=== PATIENT | male | born 1955 ===

== ENCOUNTER 2023-05-27 14:37 | Outpatient (AMB) | payer OTHER, SELFPAY ==
--- NOTE | 2023-05-27 14:39 | MHC.OFFWIV ---
Intake Vital Signs 05/27/23 14:41 BP 168/72 H Blood Pressure Location Rt brachial Position Sitting Pulse 93 Pulse Source Pulse Oximeter Temp 98.3 F Temp Source Oral Pulse Oximetry (%) 100 Oxygen Delivery Method Room Air Intake Visit Reasons: [employer]OR, feverish,no urination in 24 hrs Intake Note: Pt is here c/o having a fever for the last four days. Pt also states he has not urinated in 24 hours. Patient Tobacco Use Status: Never used Tobacco Allergies No Known Allergies Allergy (Verified 05/29/23 09:24) Medication List - Last Reconciled 05/29/23 by Kvng Faria MD No Known Home Meds Do you need a note to return to daycare/school/sports/work: No HPI [employer], feverish,no urination in 24 hrs HPI Details 68-year-old male presents to the office for a sick visit. He has not seen a primary care physician in years. Patient is reporting symptoms of diarrhea for the past week. He has not been to work for the past week. he is feeling tired and in the last 12 hours is been unable to pass urine. The diarrhea symptoms have resolved. Reports low-grade fever at times. Patient is looking for a referral to a specialist. [facility] Social History Alcohol intake: current Alcohol intake frequency: 0-2 drinks per day Alcohol type: beer Patient Tobacco Use Status: Never used Tobacco Smoked in Last 30 Days: No Use of substances other than those prescribed or required for medical reasons: No Advance Directives: No Advance Directives Information Provided: No Physical Exam Vital Signs: Last Vital Signs Temp 98.3 F 05/27/23 14:41 Pulse 93 05/27/23 14:41 BP 168/72 H 05/27/23 14:41 Pulse Ox 100 05/27/23 14:41 Oxygen Delivery Method Room Air 05/27/23 14:41 Const General: cooperative and healthy appearing Nutritional Appearance: well nourished Orientation/consciousness: patient oriented x3 Limitations: no limitations HEENT Other: Dry oral cavity. Pale sclera. Head: Yes normal to inspection Eyes General: appearance normal, both eyes and all related structures Neck Neck: Yes normal visual inspection Chest Chest palpation & inspection: normal palpation of entire chest wall Resp Effort & Inspection: normal respiratory effort Neuro General: patient oriented x3 Assessment & Plan Assessment & Plan (1) Dehydration: Code(s): E86.0 - Dehydration Plan: Physical exam is significant to mild dehydration. Patient was advised to drink a lot of fluids. Blood work has been drawn to check kidney functions as patient is reporting low output of urine. Will call with results of the blood work. Orders: Orders Basic Metabolic Panel 05/27/23 E86.0 - Dehydration Liver Panel 05/27/23 E86.0 - Dehydration Complete Blood Count no Diff 05/27/23 E86.0 - Dehydration Erythrocyte Sedimentation Rate 05/27/23 E86.0 - Dehydration UA and rflx microscopic 05/27/23 E86.0 - Dehydration Coding Level of Care Code New Pt Level 3 (85829) Diagnoses Dehydration E86.0
[2023-05-27 14:41] VITALS: BP 168/72; PULSE 93; TEMP 36.8; O2SAT 100
== END 2023-05-27 17:00 | disposition home or self-care (01) ==
PROVIDERS: Visit Provider Internal Medicine
DX: E86.0 Dehydration (principal)
CPT/HCPCS: 99203

== ENCOUNTER 2023-05-27 14:55 | Outpatient (REF) | payer OTHER, SELFPAY ==
[2023-05-27 16:29] LABS: Hematocrit 34.2 % (42.0-52.0); Hemoglobin 11.3 g/dl (14.0-18.0); Mean Corpuscular Hemoglobin 29.7 pg (27.0-33.0); Mean Platelet Volume 10.2 fL (9.4-12.4); Platelet Count 609 X10*3/uL (160-400); Red Cell Distribution Width 15.9 % (11.0-16.0)
[2023-05-27 17:32] LABS: Alanine Aminotransferase 37 U/L (0-40); Albumin Level 3.7 g/dL (3.5-5.0); Alkaline Phosphatase 130 U/L (39-117); Anion Gap 24 (12-20); Aspartate Amino Transferase 34 U/L (5-37); Bilirubin Direct 0.4 mg/dL (0.0-0.5); Bilirubin Total 0.8 mg/dL (0.0-1.0); Blood Urea Nitrogen 90 mg/dL (9-16); Calcium 8.5 mg/dL (8.4-10.2); Carbon Dioxide 16 mmol/L (22-29); Chloride 98 mmol/L (96-108); Estimated Glomerular Filt Rate 6; Glucose Random 104 mg/dL (60-115); Potassium 4.6 mmol/L (3.3-5.1); Sodium 133 mmol/L (135-145); Total Protein 7.3 g/dL (6.5-8.0)
[2023-05-27 17:39] LABS: Erythrocyte Sedimentation Rate 38 MM/HR (0-15)
[2023-05-27 18:04] LABS: White Blood Count 123.5 X10*3/uL (4.8-10.8)
[2023-05-27 19:19] LABS: Band Neutrophils Percent 10 % (3-5); Basophils Abs Manual 6.2 X10*3/uL (0.0-0.2); Basophils Percent Manual 5 % (0-2); Blastocytes Absolute 1.2 X10*3/uL; Lymphocytes Absolute Manual 3.7 X10*3/uL (1.2-4.9); Lymphocytes Percent Manual 3 % (20-40); Metamyelocytes Absolute 13.6 X10*3/uL; Metamyelocytes Percent 11 %; Myelocytes Absolute 8.6 X10*/uL; Myelocytes Percent 7 %; Neutrophils Absolute Manual 90.2 X10*3/uL (2.0-8.3); Neutrophils Percent Manual 63 % (45-73)
[2023-05-27 19:41] LABS: Promyelocytes Absolute 1.2 X10*3/uL; Promyelocytes Percent 1 %
[2023-05-27 19:46] LABS: Ovalocytes 1+ (5-14) /OIF; RBC Morphology NOTED
[2023-05-27 19:47] LABS: Large Platelet PRESENT
[2023-05-27 19:48] LABS: Platelet Estimate INCREASED (NORMAL)
[2023-05-27 19:49] LABS: Platelet Morphology Comment NOTE
== END 2023-05-27 14:56 | disposition home or self-care (01) ==
LOC: HO.HMGCLDS 14:55
PROVIDERS: Visit Provider Internal Medicine
DX: E86.0 Dehydration (principal)
CPT/HCPCS: 36415; 80048; 80076; 85007; 85027; 85652

== ENCOUNTER 2023-05-27 18:19 | Emergency (ER) | payer OTHER, SELFPAY ==
--- NOTE | ~2023-05-27 | CT_ITS ---
EXAMINATION: CT CHEST, ABDOMEN AND PELVIS WITHOUT CONTRAST. CLINICAL INFORMATION: Chest discomfort, abdominal pain. COMPARISON: No pertinent prior studies are available for comparison. TECHNIQUE: Multidetector volumetric imaging was performed from the thoracic inlet through the pubic symphysis without IV contrast. Sagittal and coronal reformatted images were obtained on the technologist's workstation. This CT examination was performed using dose optimization techniques as appropriate, variously including the following: *Automated exposure control *Adjustment of mA and/or kV according to patient size (this includes techniques or standardized protocols for targeted exams where dose is matched to indication/reason for exam; i.e. extremities or head) *Use of iterative reconstruction technique DLP: 787 mGy-cm FINDINGS: The lack of intravenous contrast limits evaluation of the vasculature as well as solid visceral organs. CHEST: Lung: Bilateral platelike opacities more noticeable in the right lower lobe favoring to represent subsegmental atelectasis and/or scarring. No consolidation or significant groundglass disease. Central airways are patent. A few micronodules of uncertain significance. A few small calcified granulomas are also visualized. Mediastinum: Enlarged heart. No significant pericardial effusion. Coronary artery calcifications are present. No mediastinal lymphadenopathy. Evaluation of the hilar structures, including hilar lymphadenopathy, is limited in the absence of IV contrast. Normal thyroid gland. Pericardium/Pleura: No pleural effusion or pneumothorax. No pericardial effusion. Chest Wall/Axilla: No lymphadenopathy by size criteria. ABDOMEN/PELVIS: Liver, Gallbladder, Biliary Tree: The liver is enlarged measuring 19.3 cm craniocaudally and demonstrates decreased attenuation most suggestive of hepatic steatosis. Otherwise, liver is normal in shape without discrete focal lesion in this limited noncontrast examination. No biliary ductal dilatation. Under distended gallbladder without evidence of calcified cholelithiasis nor pericholecystic fat stranding/free fluid to suspected acute cholecystitis. Pancreas: Limited noncontrast examination. No significant peripancreatic fat stranding or free fluid. Some degree of free fluid and stranding in the region of the tail are likely reactive in view of abnormalities in the left kidney. No main duct dilatation. Spleen: Splenomegaly measuring 19 cm craniocaudally. Adrenal Glands: No adrenal mass. Kidneys and Ureters: Significant free fluid and fat stranding centered around the left kidney extending into the retroperitoneum and pelvis. Severe left hydroureteronephrosis. The left ureter is not well delineated in view of significant overlying inflammatory changes. There are some hyperattenuating debris in the distal left ureter at the level of the pelvis axial image 81 series 4. Moderate right hydronephrosis with a 1 cm calculus adjacent to the ureterovesical junction sagittal image 85 series 13. There are at least 3 additional right-sided renal calculi, largest measuring up to 1.5 cm. Bladder: Underdistended with suggestion of diffuse wall thickening. Perivesical fat stranding/free fluid. Gastrointestinal Tract: The stomach and the small bowel are nondilated. Normal appendix. Colonic diverticulosis without significant pericolonic inflammatory changes, although evaluation of the left hemicolon is somewhat limited due to extensive inflammatory changes in the retroperitoneum and paracolic order. No evidence of bowel obstruction. Abdominal Wall: No significant hernia is appreciated. Lymphovascular Structures: Limited noncontrast examination. Abdominal aorta is normal in caliber. Scattered atherosclerotic disease. Prominent retroperitoneal and pelvic lymph nodes are indeterminate. Pelvic Viscera: As above, fat stranding and free fluid extending to the pelvis. Prostatomegaly. Osseous Structures: No acute or aggressive osseous findings. CT/CT abdomen pelvis wo IV con IMPRESSION: 1. Significant free fluid and fat stranding centered around the left kidney extending into the retroperitoneum, paracolic gutter and pelvis with severe left-sided hydroureteronephrosis. The left ureter is not well delineated in view of significant overlying inflammatory changes. There are some nonspecific hyperattenuating debris in the distal left ureter at the level of the pelvis. There is urinary bladder wall thickening. Constellation of findings are nonspecific and suboptimally assessed in this noncontrast examination. A severe urinary tract infection extending to the upper collecting system could be present. An underlying urothelial stricture/malignancy leading to obstruction and superimposed infection/inflammatory changes cannot be excluded. Urology consultation is recommended. 2. Moderate right-sided hydronephrosis with a 1 cm calculus adjacent to the ureterovesical junction. There are at least 3 additional right-sided renal calculi, largest measuring up to 1.5 cm. 3. Hepatosplenomegaly and hepatic steatosis. 4. Colonic diverticulosis. 5. Enlarged heart and coronary artery calcifications. Correlation with cardiac risk factors is recommended. 6. A few pulmonary micronodules are seen. Assuming patient has no history of malignancy, recommend follow-up per Fleischner Society recommendations. According to the UPDATED 2017 Fleischner Society recommendations, the advised followup imaging for solid nodules < 6 mm is: LOW RISK PATIENT: No routine follow up. HIGH RISK PATIENT: Optional CT at 12 months. This critical result was discussed with Cristobal Mendoza at 05/27/2023 9:10 PM and it was ascertained that the content and urgency of the report was understood at the time of direct communication.
[2023-05-27 18:31] VITALS: BP 164/93; PULSE 95; RESP 18; TEMP 36.7; O2SAT 95; BMI 30.8
--- NOTE | 2023-05-27 18:32 | ED_ITS ---
HPI - General Adult General Chief complaint: Abdominal Pain Stated complaint: Kidney failing? Time Seen by Provider: 05/27/23 18:39 Source: patient and family Mode of arrival: ambulatory Limitations: no limitations History of Present Illness HPI narrative: This is a 68-year-old male presenting to the emergency department for evaluation of nausea, vomiting, diarrhea, left lower quadrant pain, according to patient he went to urgent care today where he had labs done, he was told his labs are extremely abnormal in he had to go to the emergency department. 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 Upon further questioning patient does endorse significant fatigue throughout the past few months and night sweats. No history of malignancy in the family. Patient has not been followed by a doctor in years. Patient denies chest pain, shortness of breath, nausea, vomiting, headache, vision changes, dizziness, weakness peer Related Data Home Medications Medication Instructions Recorded Confirmed No Known Home Meds 05/27/23 05/27/23 Allergies Allergy/AdvReac Type Severity Reaction Status Date / Time No Known Allergies Allergy Verified 05/27/23 14:41 Review of Systems Review of Systems: Constitutional : No Weight loss, No Fever, No Chills, + Fatigue, + Malaise, + night sweats ENT/Mouth : No sore throat, No Rhinorrhea Eyes: No Eye Pain, No Swelling, No Redness Cardiovascular : No Chest Pain, No SOB, No Dyspnea on Exertion, No Orthopnea, No Edema, No Palpitations Respiratory : No Cough, No Sputum, No Wheezing Gastrointestinal : No Nausea, No Vomiting, No Diarrhea, No Constipation, + abdominal Pain, No Hematochezia, No Melena Genitourinary : No Dysuria, No Urinary Frequency, No Hematuria, + inability to void Musculoskeletal : No joint pain, No Myalgias, No Joint Swelling Skin : No Skin Lesions, No rash Neuro : No Weakness, No Numbness, No Dizziness, No Headache Psych : No Anxiety/Panic, No Depression All other systems reviewed and are negative Yes all other systems are reviewed and are negative [facility] Past Medical History Attestation statement: The following information was validated with the patient. Source: old records reviewed and nursing notes reviewed Social History Social History Alcohol intake: current Alcohol intake frequency: 0-2 drinks per day Alcohol type: beer Patient Tobacco Use Status: Never used Tobacco Smoked in Last 30 Days: No Use of substances other than those prescribed or required for medical reasons: No Advance Directives: No Advance Directives Information Provided: No Physical Exam ED Vital Signs: Vital Signs - 24 hr 05/27/23 18:31 05/27/23 19:29 Temperature 98.1 F 99.0 F Pulse Rate 95 95 Respiratory Rate 18 18 Blood Pressure 164/93 H 151/93 H Pulse Oximetry 95 95 Oxygen Delivery Method Room Air Room Air BMI result Body Mass Index 30.8 vss Appearance: Alert.? Oriented X3.? No acute distress.? Head: Normocephalic, atraumatic, no step-offs or deformities Eyes: Pupils equal, round and reactive to light.? CVS: Normal heart rate and rhythm.? Pulses normal.? Respiratory: No respiratory distress.? Breath sounds normal.? Abdomen: Soft and +LLQ tenderness .? Skin: Skin warm and dry.? Normal skin color.? Normal skin turgor.? Extremities: No lower extremity edema.? No calf ttp. 5/5 strength to bilateral upper and lower extremities Neuro: Oriented X 3.? No motor deficit.? No sensory deficit. CN 2-12 intact Course Course Course Narrative: This is a rapid medical exam: Additional HPI, ROS, PE not included below will be deferred to primary provider. Patient is a 68-year-old male presenting to the emergency department with complaint of nausea, diarrhea, dry heaves which began on Tuesday night. Tuesday was unable to urinate. Has not urinated since that time. Has been drinking water. Went to urgent care and was told to come to ED immediately, concern for GRETEL. Review of EMR shows WBC of 123.5, plt 609, ESR 38, creatnine of 9.23, BUN 90. Patient brought directly inside ED by hot metal charger. Reevaluation(s) Reevaluation #1: I did discuss this case with Oncology Hematology who would like to review differential on CBC, will reach back out to them when results come back. Agrees with CT chest, abdomen. Patient will likely require higher level of care at a different facility. Case discussed is suspicious for possible CLL. Call out to Nephrology pending call back Time: 19:04 Reevaluation #2: Spoke to nephrology Jesse Amor who recommends IVF normal saline, Recommends sodium biacarb/D5W 150 meq maintenance LR overnight 125 hr if patient stays in the department. Patient likely needs dialysis within the next or two. No need for emergent dialysis. Discussed this case with Dr. Ruano ICU who does not feel this is appropriate for our ICU, requires higher level of care. [facility] closed to transfers [facility] closed to transfers Patient requires higher of level of care will reach out to [facility]. Time: 19:34 Reevaluation #3: Dr. Carrillo [facility] ICU states likely leukemia. Patient will likely need dialysis per Dr. Carrillo and prompt evaluation by HEM/ONC. Patient requires higher level of care. Time: 20:50 Medications Administered Discontinued Medications Generic Name Dose Route Start Last Admin Trade Name Freq PRN Reason Stop Dose Admin Sodium Chloride 1,000 mls @ 999 mls/hr 05/27/23 19:45 05/27/23 20:37 Ns IV 05/27/23 20:45 Infused .Q1H1M YASMIN Infusion Medical Decision Making Medical Decision Making [facility] Narrative: 190 68 year old male presents w/ anuria, n/v/d, LLQ pain X5 days. Also reporting night sweats, fatigue. Was told he had very abnormal labs at elevated WBC count Physical exam left lower quadrant tenderness to palpation. Patient well appearing nontoxic. Hemodynamically stable Concerns for CLL, blood cancer, malignancy. Other differentials include tumor lysis syndrome. There is concern for kidney failure, patient will likely require hemodialysis emergently. Will rule out metabolic derangements, will also repeat labs to rule out lab error. Unlikely that this is infectious in origin, unlikely DIC at this time. Plan at this time repeat labs, CT chest, abdomen, Botello catheter, bladder scan, LDH, uric acid Differential Diagnosis Differential Diagnoses: The differential diagnosis associated with the presentation includes Concerns for CLL, blood cancer, malignancy. Other differentials include tumor lysis syndrome. There is concern for kidney failure, patient will likely require hemodialysis emergently. Will rule out metabolic derangements, will also repeat labs to rule out lab error. Unlikely that this is infectious in origin. Admission/Observation Consideration of admission/observation: Escalation of care including admission/observation considered Patient will likely be admitted to a hospital however not hear Consult Healthcare Provider Management of the patient was discussed with: Safety Sealer (Oncology Hematology, Nephrology) Lab Data MDM Lab Attestation statement: I reviewed the patient's lab results. 05/27/23 19:24 05/27/23 19:24 Labs: Lab Results 05/27/23 05/27/23 05/27/23 Range/Units 19:24 19:24 19:24 WBC 118.0 H* (4.8-10.8) X10*3/uL RBC 3.61 L (4.60-5.80) X10*6/uL Hgb 10.8 L (14.0-18.0) g/dl Hct 32.4 L (42.0-52.0) % MCV 89.8 (80.0-98.0) fL MCH 29.9 (27.0-33.0) pg MCHC 33.3 (31.0-36.0) g/dl RDW 15.7 (11.0-16.0) % Plt Count 585 H (160-400) X10*3/uL MPV 10.0 (9.4-12.4) fL Immature Gran % (Auto) Cancelled Neut % (Auto) Cancelled Lymph % (Auto) Cancelled [place] % (Auto) Cancelled Eos % (Auto) Cancelled Baso % (Auto) Cancelled Lymph # (Auto) Cancelled [place] # (Auto) Cancelled Eos # (Auto) Cancelled Baso # (Auto) Cancelled Abs Immat Gran (auto) Cancelled Absolute Neuts (auto) Cancelled Absolute Nucleated RBC 0.050 H (0.0-0.012) X10*3/uL Nucleated RBC % (auto) 0.0 (0.0-0.2) /100WBC Neutrophils % (Manual) 60 (45-73) % Band Neutrophils % 16 H (3-5) % Lymphocytes % (Manual) 5 L (20-40) % Eosinophils % (Manual) 2 (0-4) % Basophils % (Manual) 6 H (0-2) % Metamyelocytes % 5 % Myelocytes % 6 % Abs Neuts (Manual) 89.7 H (2.0-8.3) X10*3/uL Lymphocytes # (Manual) 5.9 H (1.2-4.9) X10*3/uL Eosinophils # (Manual) 2.4 H (0.0-0.4) X10*3/uL Basophils # (Manual) 7.1 H (0.0-0.2) X10*3/uL Metamyelocytes # 5.9 X10*3/uL Myelocytes # 7.1 X10*/uL Platelet Estimate INCREASED (NORMAL) Plt Morphology Comment NORMAL RBC Morphology NORMAL Sodium 133 L (135-145) mmol/L Potassium 4.4 (3.3-5.1) mmol/L Chloride 99 (96-108) mmol/L Carbon Dioxide 14 L (22-29) mmol/L Anion Gap 24 H (12-20) BUN 92 H (9-16) mg/dL Creatinine 10.51 H* (0.5-1.4) mg/dL Estim Creat Clear Calc 9.0 Estimated GFR 5 Random Glucose 110 (60-115) mg/dL Lactic Acid 0.8 (0.5-2.0) mmol/L Uric Acid 19.3 H (3.4-7.0) mg/dL Calcium 8.7 (8.4-10.2) mg/dL Magnesium 2.3 (1.6-2.6) mg/dL Total Bilirubin 0.8 (0.0-1.0) mg/dL AST 37 (5-37) U/L ALT 38 (0-40) U/L Alkaline Phosphatase 130 H (39-117) U/L Total Creatine Kinase 44 (38-174) U/L Total Protein 7.0 (6.5-8.0) g/dL Albumin 3.6 (3.5-5.0) g/dL Lipase 49 (8-78) U/L Ethyl Alcohol mg/dL COVID-19 ([facility]) (Negative) COVID-19 Clin Com 05/27/23 05/27/23 Range/Units 19:24 19:25 WBC (4.8-10.8) X10*3/uL RBC (4.60-5.80) X10*6/uL Hgb (14.0-18.0) g/dl Hct (42.0-52.0) % MCV (80.0-98.0) fL MCH (27.0-33.0) pg MCHC (31.0-36.0) g/dl RDW (11.0-16.0) % Plt Count (160-400) X10*3/uL MPV (9.4-12.4) fL Immature Gran % (Auto) Neut % (Auto) Lymph % (Auto) [place] % (Auto) Eos % (Auto) Baso % (Auto) Lymph # (Auto) [place] # (Auto) Eos # (Auto) Baso # (Auto) Abs Immat Gran (auto) Absolute Neuts (auto) Absolute Nucleated RBC (0.0-0.012) X10*3/uL Nucleated RBC % (auto) (0.0-0.2) /100WBC Neutrophils % (Manual) (45-73) % Band Neutrophils % (3-5) % Lymphocytes % (Manual) (20-40) % Eosinophils % (Manual) (0-4) % Basophils % (Manual) (0-2) % Metamyelocytes % % Myelocytes % % Abs Neuts (Manual) (2.0-8.3) X10*3/uL Lymphocytes # (Manual) (1.2-4.9) X10*3/uL Eosinophils # (Manual) (0.0-0.4) X10*3/uL Basophils # (Manual) (0.0-0.2) X10*3/uL Metamyelocytes # X10*3/uL Myelocytes # X10*/uL Platelet Estimate (NORMAL) Plt Morphology Comment RBC Morphology Sodium (135-145) mmol/L Potassium (3.3-5.1) mmol/L Chloride (96-108) mmol/L Carbon Dioxide (22-29) mmol/L Anion Gap (12-20) BUN (9-16) mg/dL Creatinine (0.5-1.4) mg/dL Estim Creat Clear Calc Estimated GFR Random Glucose (60-115) mg/dL Lactic Acid (0.5-2.0) mmol/L Uric Acid (3.4-7.0) mg/dL Calcium (8.4-10.2) mg/dL Magnesium (1.6-2.6) mg/dL Total Bilirubin (0.0-1.0) mg/dL AST (5-37) U/L ALT (0-40) U/L Alkaline Phosphatase (39-117) U/L Total Creatine Kinase (38-174) U/L Total Protein (6.5-8.0) g/dL Albumin (3.5-5.0) g/dL Lipase (8-78) U/L Ethyl Alcohol < 10 mg/dL COVID-19 ([facility]) Negative (Negative) COVID-19 Clin Com See Note Independent Interpretation I performed an independent interpretation of an: CT Scan Radiology Impression Discussion of test interpretation with radiology: I have reviewed the radiologist's reading. Core Measures AMI core measures followed: Yes Measure exclusions: not indicated Critical Care Time Critical Care Time Critical Care Time: Yes Total Critical Care Time: 120 Attestation: I attest to this time spent taking care of the patient, obtaining history, physical, reviewing labs, imaging, speaking to my attending, speaking to specialist. Discharge Plan Discharge Clinical Impression: Acute kidney failure, Leukocytosis, Abdominal pain, Nausea & vomiting, Obstructive uropathy, Hydronephrosis Patient Disposition: [facility] Transfer Details: [facility] [address] Carrillo ICU attending CT/CT chest wo IV con IMPRESSION: 1. Significant free fluid and fat stranding centered around the left kidney extending into the retroperitoneum, paracolic gutter and pelvis with severe left-sided hydroureteronephrosis. The left ureter is not well delineated in view of significant overlying inflammatory changes. There are some nonspecific hyperattenuating debris in the distal left ureter at the level of the pelvis. There is urinary bladder wall thickening. Constellation of findings are nonspecific and suboptimally assessed in this noncontrast examination. A severe urinary tract infection extending to the upper collecting system could be present. An underlying urothelial stricture/malignancy leading to obstruction and superimposed infection/inflammatory changes cannot be excluded. Urology consultation is recommended. 2. Moderate right-sided hydronephrosis with a 1 cm calculus adjacent to the ureterovesical junction. There are at least 3 additional right-sided renal calculi, largest measuring up to 1.5 cm. 3. Hepatosplenomegaly and hepatic steatosis. 4. Colonic diverticulosis. 5. Enlarged heart and coronary artery calcifications. Correlation with cardiac risk factors is recommended. 6. A few pulmonary micronodules are seen. Assuming patient has no history of malignancy, recommend follow-up per Fleischner Society recommendations. According to the UPDATED 2017 Fleischner Society recommendations, the advised followup imaging for solid nodules < 6 mm is: LOW RISK PATIENT: No routine follow up. HIGH RISK PATIENT: Optional CT at 12 months. Prescriptions: No Action No Known Home Meds
[2023-05-27 19:29] VITALS: BP 151/93; PULSE 95; RESP 18; TEMP 37.2; O2SAT 95
--- NOTE | 2023-05-27 19:33 | ECG_ITS ---
Test Reason : abd pain Blood Pressure : / mmHG Vent. Rate : 094 BPM Atrial Rate : 094 BPM P-R Int : 134 ms QRS Dur : 092 ms QT Int : 338 ms P-R-T Axes : 038 -38 032 degrees QTc Int : 422 ms Normal sinus rhythm Possible Left atrial enlargement Left axis deviation Abnormal ECG No previous ECGs available Referred By: Cristobal Mendoza Electronically Signed By:ASHA LEVY
[2023-05-27] MEDS: 0.9 % Sodium Chloride 1,000 ML 999 ML IV (19:37)
--- NOTE | 2023-05-27 19:38 | PC.NURSE ---
Medicated per Dec, notified Gerri Valera.
[2023-05-27 19:47] LABS: Hematocrit 32.4 % (42.0-52.0); Hemoglobin 10.8 g/dl (14.0-18.0); Mean Corpuscular HGB Conc 33.3 g/dl (31.0-36.0); Mean Corpuscular Hemoglobin 29.9 pg (27.0-33.0); Mean Corpuscular Volume 89.8 fL (80.0-98.0); Platelet Count 585 X10*3/uL (160-400); Red Blood Count 3.61 X10*6/uL (4.60-5.80); Red Cell Distribution Width 15.7 % (11.0-16.0)
--- NOTE | 2023-05-27 19:54 | PC.NURSE ---
this director underwriter sales assumed care of this pt at 1900, pt a&ox4, denies pain, reports no urine output since Tuesday. States just a few dribbles, with left LLQ ABD pain. Bladder scanned, results: 3 ml. Provider Duke Mendoza aware. Bilateral IV 18G placed. Blood work collected and sent to lab. Fluids given as documented. Sodium bicarb held, awaiting lab results. Pt brought over to CT scan.
[2023-05-27 19:55] LABS: COVID-19 Test Negative (Negative); IDNOW Serial# BCCEAD1C
[2023-05-27 19:57] LABS: WBC ABN SCTR FOR CBC 1
[2023-05-27 20:29] LABS: Lactic Acid 0.8 mmol/L (0.5-2.0)
[2023-05-27 20:42] LABS: Ethanol < 10 mg/dL
[2023-05-27 20:57] LABS: Alanine Aminotransferase 38 U/L (0-40); Alkaline Phosphatase 130 U/L (39-117); Aspartate Amino Transferase 37 U/L (5-37); Calcium 8.7 mg/dL (8.4-10.2); Lipase 49 U/L (8-78); Magnesium 2.3 mg/dL (1.6-2.6)
[2023-05-27 20:58] LABS: Albumin Level 3.6 g/dL (3.5-5.0); Anion Gap 24 (12-20); Bilirubin Total 0.8 mg/dL (0.0-1.0); Blood Urea Nitrogen 92 mg/dL (9-16); Carbon Dioxide 14 mmol/L (22-29); Chloride 99 mmol/L (96-108); Estimated Glomerular Filt Rate 5; Glucose Random 110 mg/dL (60-115); Potassium 4.4 mmol/L (3.3-5.1); Sodium 133 mmol/L (135-145); Uric Acid 19.3 mg/dL (3.4-7.0)
[2023-05-27 21:08] LABS: Neutrophils Percent Manual 60 % (45-73)
[2023-05-27 21:09] LABS: Band Neutrophils Percent 16 % (3-5); Basophils Abs Manual 7.1 X10*3/uL (0.0-0.2); Basophils Percent Manual 6 % (0-2); Eosinophils Absolute Manual 2.4 X10*3/uL (0.0-0.4); Eosinophils Percent Manual 2 % (0-4); Lymphocytes Absolute Manual 5.9 X10*3/uL (1.2-4.9); Lymphocytes Percent Manual 5 % (20-40); Metamyelocytes Absolute 5.9 X10*3/uL; Metamyelocytes Percent 5 %; Myelocytes Absolute 7.1 X10*/uL; Myelocytes Percent 6 %; Neutrophils Absolute Manual 89.7 X10*3/uL (2.0-8.3)
[2023-05-27 21:10] LABS: Platelet Estimate INCREASED (NORMAL); Platelet Morphology Comment NORMAL; RBC Morphology NORMAL
[2023-05-27 21:21] LABS: ABG Base Excess -8.2 mmol/L; ABG HCO3 15 mmol/L (22-26); ABG pCO2 27 mmHg (32-45); ABG pH 7.36 (7.35-7.45); ABG pO2 52 mmHg (83-108)
[2023-05-27] MEDS: Sodium Bicarbonate 8.4% 150 MEQ in Dextrose 5 % 850 ML 100 MEQ IV (21:25)
[2023-05-27 21:37] LABS: INTERNATIONAL NORM RATIO 1.2 (0.9-1.1); Prothrombin Time 14.1 SEC (11.1-13.3)
[2023-05-27 21:39] LABS: D Dimer High Sensitivity 903 NG/ML
--- NOTE | 2023-05-27 22:49 | PC.NURSE ---
16 fr weems was placed, pt tolerated well. Report given to ALAINA Raines at [facility], pt transported via EMS, pt and are aware of plans.
[2023-05-27 23:09] LABS: Lactate Dehydrogenase 782 U/L (118-273)
== END 2023-05-27 22:52 | disposition short-term general hospital (02) ==
PROVIDERS: Physician Assistant; Emergency Provider Emergency Medicine
DX: N17.9 Acute kidney failure, unspecified (principal); D72.829 Elevated white blood cell count, unspecified; R10.32 Left lower quadrant pain; R11.2 Nausea with vomiting, unspecified; N13.1 Hydronephrosis with ureteral stricture, not elsewhere classified; Z20.822 Contact with and (suspected) exposure to COVID-19
CPT/HCPCS: 71250; 74176; 80053; 80307; 82550; 82803; 83010; 83605; 83615; 83690; 83735; 84550; 85007; 85025; 85027; 85379; 85610; 87040; 87635; 93005; 96361; 96374; 99285

== ENCOUNTER → 2023-05-27 19:33 | Outpatient (BNV) | payer OTHER, SELFPAY | PROVIDERS: Emergency Provider Emergency Medicine; Visit Provider Internal Medicine | DX: R94.31 Abnormal electrocardiogram [ECG] [EKG] (principal) | CPT/HCPCS: 93010 ==

== ENCOUNTER 2023-09-12 13:08 | Outpatient (AMB) | payer OTHER, SELFPAY ==
[2023-09-12 13:40] VITALS: BP 134/82; PULSE 106; O2SAT 98; BMI 27.8
--- NOTE | 2023-09-12 13:40 | A.OFFPC_ITS ---
Vital Signs 09/12/23 13:40 Height 6 ft 2 in Weight 216 lb 6 oz BMI 27.8 BP 134/82 Blood Pressure Location Lt brachial Position Sitting Pulse 106 H Pulse Source Pulse Oximeter Pulse Oximetry (%) 98 Oxygen Delivery Method Room Air Intake Visit Reasons: kidney failure/ est care Insurance Processor Required: No Accompanied by: Self / Same As Patient Allergies No Known Allergies Allergy (Verified 12/19/23 13:53) Medication List - Last Reconciled 12/20/23 by Clinton Morales MD allopurinol 100 mg PO BID dasatinib (Sprycel) 100 mg PO DAILY Tobacco use date assessed: 09/12/23 Fall risk assessment: No Falls in past year Last assessed Fall Risk: 09/12/23 Dental Screening Dental Screen Date: 09/12/23 Did you have a dental visit in the last 12 months?: Yes Did you have a dental problem in the last 6 months where you did not have access to dental care?: No Was dental information given to patient?: Patient has dentist HPI kidney failure/ est care HPI Details Patient comes in today for his HDF follow up visit and to establish care - is a new patient to the practice To summarize, patient was sent to the ER at [facility] back in early May 2023 when his outpatient labs came back with significantly abnormal results His white blood cell count at the time came back at 123.5, BUN at 90, serum creatinine at 9.2 and GFR of 6 He initially presented to the walk-in clinic back on 05/27/2023 for increasing fatigue and symptoms of dehydration and was sent for some labs for further evaluation When patient arrived at the ER, he was evaluated and was found to have also a significantly elevated serum uric acid level Upon consultation with Hematology and Oncology, the decision was made to transfer him to a tertiary care center for urgent and more intensive management and he was eventually transferred to the [facility] in [place], were patient states that he was admitted for several weeks and was just discharged home a few weeks ago He recalls receiving urgent hemodialysis while at the hospital there and was also being seen and treated by a Dr. Meng for his leukemia although he is unclear at this time what treatments he has received so far for leukemia and how his status/ condition is at this time Patient also had a stent inserted into his right kidney last week by Urology for hydronephrosis at [facility] and he will continue to follow with Urology there for this issue Presently, patient states that he still feels fatigued but is much better than he was a few months ago He denies any headaches or dizziness Denies any chest pains, no increased shortness of breath No nausea /vomiting, no abdominal pain No change in bowel habits noted [facility] Medical History (Updated 12/20/23 @ 05:05 by Clinton Morales MD) Obesity (BMI 30-39.9) Elevated blood pressure reading in office without diagnosis of hypertension Acute kidney failure Hyperuricemia Leukemia Surgical History (Updated 12/19/23 @ 14:08 by Clinton Morales MD) Hx of tonsillectomy Family History Father Diabetes Social History Household Members: Spouse Housing: House Alcohol intake: current Alcohol intake frequency: 0-2 drinks per day Alcohol type: beer Patient Tobacco Use Status: Never used Tobacco e-Cigarette/Vaping Use: Never Used service: No Current occupational status: employed Current occupational exposures/hazards: No Cognitive needs: No Hearing needs: No Vision needs: No Questionnaire PHQ-9 Over the last 2 weeks, how often have you been bothered by any of the following problems? 1. Little interest or pleasure in doing things: not at all 2. Feeling down, depressed, or hopeless: not at all 3. Trouble falling or staying asleep, or sleeping too much: not at all 4. Feeling tired or having little energy: not at all 5. Poor appetite or overeating: not at all 6. Feeling bad about yourself - or that you are a failure or have let yourself or your family down: not at all 7. Trouble concentrating on things, such as reading the newspaper or watching television: not at all 8. Moving or speaking so slowly that other people could have noticed. Or the opposite - being so fidgety or restless that you have been moving around a lot more than usual: not at all 9. Thoughts that you would be better off or of hurting yourself in some way: not at all Total score: 0 Depression Screening Interpretation: Negative Depression Screening Done: Yes 96521 - PHQ-9 Billing: Yes Source: Developed by Drs. Kieran Castro, Waldemar Moreno and colleagues, with an educational bethel from [employer]. Thrive Questionnaire Date Thrive assessed: 09/12/23 I am a: Patient What is your living situation today?: I have a steady place to live Within the past 12 months, did the food you bought not last and you didn't have the money to get more?: Never true Within the past 12 months, did you worry whether your food would run out before you got money to buy more?: Never true Do you have trouble paying for medicines?: No Do you have trouble getting transportation to medical appointments?: No Do you have trouble paying your heating and electricity bill?: No Do you have trouble taking care of your child, family member or friend?: No Do you have trouble with day-to-day activities such as bathing, preparing meals, shopping, managing finances, etc.?: No Are you currently unemployed and looking for a job?: No Are you interested in more education?: No Please select the resources that you would like help with: None Currently or been in a relationship where the following occur: no concerns reported AUDIT C Alcohol Use Questionnaire (AUDIT-C) 1. How often do you have a drink containing alcohol?: Never 3. How often do you have six or more drinks on one occasion?: Never Total Score: 0 Score Reviewed/Action Taken: Yes SHARATH-7 AMB Questionnaire SHARATH-7 Date SHARATH - 7 assessed: 09/12/23 Feeling nervous, anxious, or on edge: 0 = Not at all Not being able to stop or control worryin = Not at all Worrying too much about different things: 0 = Not at all Trouble relaxin = Not at all Being so restless that it is hard to sit still: 0 = Not at all Becoming easily annoyed or irritable: 0 = Not at all Feeling afraid as if something awful might happen: 0 = Not at all Total SHARATH-7 score (0-4 normal; 5-9 mild; 10-14 moderate; 15-21 severe): 0 Source: Developed by Faviola Marie Kurt Kroenke and colleagues, with an educational bethel from [employer]. Review of Systems Const Denies chills, Reports fatigue, Denies fever(s) and Denies headache(s) ENT Denies dysphagia, Denies dizziness, Denies otalgia, Denies headache(s), Denies neck pain, Denies odynophagia and Denies sore throat Card Denies chest pain, Denies palpitations and Denies dyspnea Resp Denies cough and Denies dyspnea GI Denies abdominal pain, Denies constipation, Denies dysphagia, Denies heartburn, Denies diarrhea, Denies nausea, Denies odynophagia and Denies vomiting Details: (+) mild right flank pain - s/p stenting by urology last week Denies dysuria, Denies nocturia and Denies urinary frequency Musc Denies neck pain Skin/Breast Denies rash Neuro Denies dizziness and Denies headache(s) Endo Reports fatigue and Denies palpitations Physical exam (Primary Care) Vital Signs: Last Vital Signs Pulse 106 H 09/12/23 13:40 BP 134/82 09/12/23 13:40 Pulse Ox 98 09/12/23 13:40 Oxygen Delivery Method Room Air 09/12/23 13:40 BMI result Body Mass Index 27.8 Tobacco/Smoking Status: Tobacco use Status Tobacco use date assessed 09/12/23 09/12/23 13:53 Patient Tobacco Use Status Never used Tobacco 09/12/23 13:53 e-Cigarette/Vaping Use Never Used 09/12/23 13:53 Depression Screening Interpretation: Negative Thrive Assessment: Date of Thrive Assessment Date Thrive assessed 09/12/23 09/12/23 13:53 Currently or been in a relationship where the following occur: no concerns reported Const General: no acute distress and alert HENMT Ears: TM's normal bilaterally and EAC's normal Throat: Yes posterior oropharynx normal and Yes tonsils normal (no TP congestion) Neck Neck: Yes no lymphadenopathy and Yes supple Thyroid: Thyroid normal Resp Auscultation: clear to auscultation bilaterally, no rales and no wheezes Cardio Rate: regular rate Rhythm: regular rhythm Heart sounds: no murmurs GI Palpation (GI): Soft to palpation and nontender Auscultation: normal bowel sounds General: Yes CVA tenderness (mild, on the right side - s/p stenting last week) Back/Spine/Pelvis Back: CVA tenderness (mild, on the right side - s/p stenting last week) Skin Rashes: no rashes Extrem General: Yes no clubbing, cyanosis or edema Assessment and Plan Assessment & Plan (1) Leukocytosis: Code(s): D72.829 - Elevated white blood cell count, unspecified Qualifiers: Leukocytosis type: unspecified Qualified Code(s): D72.829 - Elevated white blood cell count, unspecified Plan: Possible CLL Patient was discharged from [facility] in [place] a few weeks ago and we will try to obtain a copy of his hospital records for review and documentation He was transferred to [facility] from our ER here back in May 2023 when he was sent to the ER for abnormal outpatient labs States that he has been seen and treated by Hematology/Oncology (Dr. Meng) at [facility] over the past couple of months but as we have not received any further records from them since his initial admission in May 2023, I am unclear at this time as to the status of his conditions Will send patient for some labs ALESIA for further evaluation and advised that we will check back with him with further instructions once we have his lab results (2) Hyperuricemia: Code(s): E79.0 - Hyperuricemia without signs of inflammatory arthritis and tophaceous disease Plan: Was likely due to tumor lysis His serum uric acid level was significantly elevated at 19.3 mg/dl back in May 2023 Am unclear at this time how his level is now although he reported getting urgent hemodialysis while he was at [facility] Will recheck his serum uric acid level along with his other labs ALESIA for follow up (3) Nephrolithiasis: Code(s): N20.0 - Calculus of kidney Plan: Patient had severe left-sided hydroureteronephrosis and moderate right-sided hydronephrosis with a 1 cm calculus adjacent to the ureterovesical junction, wit h at least 3 additional right-sided renal calculi with the largest measuring up to 1.5 cm seen on abdominal and pelvic CT done back in May 2023 when he was experiencing symptoms from his leukemia and hyperuricemia Patient reportedly had two stents inserted last week on 09/05/2023 by urology (Dr. Ndiaye) at [facility] Follow up with urology as scheduled (4) Renal failure: Code(s): N19 - Unspecified kidney failure Qualifiers: Renal failure chronicity: unspecified chronicity Qualified Code(s): N19 - Unspecified kidney failure Plan: His serum creatinine was at 10.51 and GFR at 5 on his most recent labs done here in May 2023 He reported receiving urgent hemodialysis while admitted at [facility] over the past couple of months Will send patient for some labs to recheck his renal function ALESIA - advised that depending on how his labs come out, he may need to see nephrology for further management (5) Obesity (BMI 30-39.9): Code(s): E66.9 - Obesity, unspecified Plan: Reinforced diet/exercise as tolerated/lose weight Plan Follow up in 3 months Orders: Orders Uric Acid 09/12/23 M10.9 - Gout, unspecified Lipid Panel 09/12/23 E78.00 - Pure hypercholesterolemia, unspecified, N18.9 - Chronic kidney disease, unspecified, C91.10 - Chronic lymphocytic leukemia of B- cell type not having achieved remission Complete Blood Count Auto Diff 09/12/23 D72.829 - Elevated white blood cell count, unspecified, N18.9 - Chronic kidney disease, unspecified Comprehensive [place]. Panel Fast 09/12/23 N18.9 - Chronic kidney disease, unspecified, C91.10 - Chronic lymphocytic leukemia of B-cell type not having achieved remission TSH reflex Free T4 09/12/23 N18.9 - Chronic kidney disease, unspecified, C91.10 - Chronic lymphocytic leukemia of B-cell type not having achieved remission, R5 3.83 - Other fatigue UA CC w/rflx Micro + Cult 09/12/23 N18.9 - Chronic kidney disease, unspecified, C91.10 - Chronic lymphocytic leukemia of B-cell type not having achieved remission Coding Level of Care Code New Pt Level 4 (96219) Diagnoses Leukocytosis, unspecified type D72.829 Leukocytosis type: unspecified Hyperuricemia E79.0 Nephrolithiasis N20.0 Renal failure, unspecified chronicity N19 Renal failure chronicity: unspecified chronicity Obesity (BMI 30-39.9) E66.9
== END 2023-09-12 14:25 | disposition home or self-care (01) ==
PROVIDERS: Visit Provider Internal Medicine
DX: D72.829 Elevated white blood cell count, unspecified (principal); N20.0 Calculus of kidney; N19 Unspecified kidney failure; E66.9 Obesity, unspecified
CPT/HCPCS: 99204; 99214

== ENCOUNTER 2023-09-12 14:39 | Outpatient (REF) | payer OTHER, SELFPAY ==
[2023-09-12 15:30] LABS: Hematocrit 28.8 % (42.0-52.0); Hemoglobin 9.1 g/dl (14.0-18.0); Mean Corpuscular HGB Conc 31.6 g/dl (31.0-36.0); Mean Corpuscular Hemoglobin 28.1 pg (27.0-33.0); Mean Corpuscular Volume 88.9 fL (80.0-98.0); Mean Platelet Volume 9.8 fL (9.4-12.4); NRBC Pct Auto 0.4 /100WBC (0.0-0.2); Platelet Count 733 X10*3/uL (160-400); Red Blood Count 3.24 X10*6/uL (4.60-5.80); Red Cell Distribution Width 18.6 % (11.0-16.0)
[2023-09-12 15:36] LABS: WBC ABN SCTR FOR CBC 1
[2023-09-12 16:01] LABS: Alanine Aminotransferase 13 U/L (0-40); Albumin Level 4.1 g/dL (3.5-5.0); Alkaline Phosphatase 81 U/L (39-117); Anion Gap 10 (12-20); Aspartate Amino Transferase 22 U/L (5-37); Bilirubin Total 0.4 mg/dL (0.0-1.0); Blood Urea Nitrogen 25 mg/dL (9-16); Calcium 9.5 mg/dL (8.4-10.2); Carbon Dioxide 27 mmol/L (22-29); Chloride 107 mmol/L (96-108); Cholesterol 146 mg/dL (<200); Estimated Glomerular Filt Rate 59; Glucose Fasting 90 mg/dL (60-99); HDL Cholesterol 33 mg/dL (>40); LDL Cholesterol Calculated 84 mg/dL (<100); Sodium 140 mmol/L (135-145); Total Protein 7.7 g/dL (6.5-8.0); Triglycerides 148 mg/dL (<150); Uric Acid 8.2 mg/dL (3.4-7.0)
[2023-09-12 16:16] LABS: TSH reflex Free T4 2.41 uIU/mL (0.32-4.0)
[2023-09-12 16:29] LABS: Atypical Lymphs Percent Manual 6 % (0-6); Band Neutrophils Percent 27 % (3-5); Basophils Percent Manual 3 % (0-2); Eosinophils Percent Manual 3 % (0-4); Lymphocytes Percent Manual 4 % (20-40); Metamyelocytes Percent 4 %; Monocytes Percent Manual 1 % (2-11); Myelocytes Percent 3 %; Neutrophils Percent Manual 48 % (45-73); Promyelocytes Percent 1 %
[2023-09-12 16:30] LABS: Platelet Estimate INCREASED (NORMAL); Platelet Morphology Comment NORMAL; RBC Morphology NORMAL
[2023-09-12 16:34] LABS: Atypical Lymph Absolute Manual 11.1 x10*3/uL; Basophils Abs Manual 5.6 X10*3/uL (0.0-0.2); Eosinophils Absolute Manual 5.6 X10*3/uL (0.0-0.4); Lymphocytes Absolute Manual 7.4 X10*3/uL (1.2-4.9); Metamyelocytes Absolute 7.4 X10*3/uL; Monocytes Absolute Manual 1.9 X10*3/uL (0.1-1.2); Myelocytes Absolute 5.6 X10*/uL; Neutrophils Absolute Manual 138.9 X10*3/uL (2.0-8.3); Promyelocytes Absolute 1.9 X10*3/uL
[2023-09-12 16:43] LABS: White Blood Count 185.2 X10*3/uL (4.8-10.8)
== END 2023-09-12 14:40 | disposition home or self-care (01) ==
LOC: HO.LAB 14:39
PROVIDERS: PCP Internal Medicine; Visit Provider Internal Medicine
DX: N18.9 Chronic kidney disease, unspecified (principal); C91.10 Chronic lymphocytic leukemia of B-cell type not having achieved remission; E78.00 Pure hypercholesterolemia, unspecified; R53.83 Other fatigue; M10.9 Gout, unspecified
CPT/HCPCS: 36415; 80053; 80061; 84443; 84550; 85007; 85025; 85027

== ENCOUNTER 2023-09-26 08:33 | Day surgery (SDC) | payer OTHER, SELFPAY ==
--- NOTE | ~2023-09-26 | CT_ITS ---
Concern for CML. Oncology requests a bone marrow biopsy/aspiration PROCEDURES: 1. Limited preprocedure CT of the pelvis. Permanent images saved in PACS. 2. 11 g bone marrow core biopsy of the left posterior iliac spine 3. 11 g bone marrow aspirate of the left posterior iliac spine CLINICIANS: Usman Hunter PA-C Preprocedural imaging reviewed with Dr. Lancaster MEDICATIONS: -Versed 1.5 mg, Fentanyl 75 mcg, and lidocaine 1% 10 mL SQ -Antibiotics: None -For additional details, please see nursing flowsheet. COMPLICATIONS: None ESTIMATED BLOOD LOSS: < 5 ml CONTRAST: None SPECIMENS: 11 g core placed in formalin. Bone marrow aspirate placed in EDTA and sodium heparin tubes MODERATE SEDATION TIME: 18 min PROCEDURE NOTE: The procedure, risks, benefits, and alternatives were carefully explained to the patient and written informed consent was obtained. The patient was placed prone on the CT table. A timeout was performed. A limited CT of the pelvis was performed to localize posterior iliac spine and choose appropriate needle entry and trajectory. The patient was prepped and draped in usual sterile fashion. The skin, subcutaneous tissues, and periosteum were anesthetized with lidocaine. Under CT guidance, an 11-gauge bone marrow biopsy needle was advanced into the posterior iliac spine, with the tip positioned slightly cephalad. An 11-gauge core biopsy of the bone marrow was performed and was placed in formalin. Next, the 11-gauge bone marrow biopsy needle was then advanced into the posterior iliac spine, or CT guidance, with the tip positioned slightly caudal. A bone marrow aspirate was performed. The specimen was placed in the provided EDTA and sodium heparin tubes. The needle was removed. A dry dressing was applied and secured with Tegaderm. There were no immediate complications. The patient was stable after the procedure and was transferred to the post anesthesia care unit. The procedure was done under moderate sedation with a dedicated nurse for monitoring of vital signs. CT/CT biopsy aspirate bone marrow Impression: CT-guided bone marrow biopsy and aspirate This procedure was performed by Usman Hunter PA-C and supervised by Dr. Lancaster.
[2023-09-26 10:01] LABS: Prothrombin Time 12.5 SEC (11.1-13.3)
[2023-09-26 11:35] VITALS: BP 127/74; PULSE 89; RESP 20; TEMP 37; O2SAT 96
[2023-09-26 11:50] VITALS: BP 123/76; PULSE 83; RESP 16; TEMP 36.9; O2SAT 97
[2023-09-26 11:55] VITALS: BP 124/75; PULSE 85; RESP 16; TEMP 36.9; O2SAT 97
[2023-09-26 13:05] LABS: Bone Marrow SEE SEPARATE REPORT
== END 2023-09-26 12:02 | disposition home or self-care (01) ==
PROVIDERS: Physician Assistant Surgical; Radiology Vascular & Interventional Radiology; PCP Internal Medicine; Visit Provider Internal Medicine
DX: C92.10 Chronic myeloid leukemia, BCR/ABL-positive, not having achieved remission (principal); D64.9 Anemia, unspecified; N17.9 Acute kidney failure, unspecified; R16.1 Splenomegaly, not elsewhere classified; R53.81 Other malaise; N20.0 Calculus of kidney; Z96.0 Presence of urogenital implants; Z79.899 Other long term (current) drug therapy
CPT/HCPCS: 36415; 38222; 85610; 88184; 88185; 88237; 88264; 88305; 88311; 88313; 88342; 99152; J1642; J2250; J2310; J3010

== ENCOUNTER → 2023-09-26 10:49 | Outpatient (BNV) | payer OTHER, SELFPAY | PROVIDERS: PCP Internal Medicine; Visit Provider Student in an Organized Health Care Education/Training Program | DX: C95.90 Leukemia, unspecified not having achieved remission (principal) | CPT/HCPCS: 38222; 77012 ==

== ENCOUNTER → 2023-10-26 09:40 | Outpatient (BNV) | payer BC, SELFPAY | PROVIDERS: Visit Provider Internal Medicine | DX: C95.90 Leukemia, unspecified not having achieved remission (principal) | CPT/HCPCS: 99213; 99214 ==

== ENCOUNTER 2023-12-19 13:07 | Outpatient (AMB) | payer BC, SELFPAY ==
[2023-12-19 13:15] VITALS: BP 160/88; PULSE 70; O2SAT 99
--- NOTE | 2023-12-19 13:15 | MHC.PC.OV ---
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: Not Required per policy Accompanied by: Self / Same As Patient Allergies No Known Allergies Allergy (Verified 12/19/23 13:53) Medication List - Last Reconciled 12/19/23 by Clinton Morales MD allopurinol 100 mg PO BID dasatinib (Sprycel) 100 mg PO DAILY Tobacco use date assessed: 12/19/23 Fall risk assessment: No Falls in past year Last assessed Fall Risk: 12/19/23 Dental Screening Dental Screen Date: 12/19/23 Did you have a dental visit in the last 12 months?: Yes Did you have a dental problem in the last 6 months where you did not have access to dental care?: No Was dental information given to patient?: Patient has dentist HPI CKD, CLL HPI Details Patient comes in today for his follow up visit States that he feels okay He denies any headaches or dizziness Denies any chest pains, no SOB No nausea/vomiting, no abdominal pain No change in bowel habits noted 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 and appears to be doing well with his Tx He had some follow up labs done a few weeks ago and would like to know how he did on these PFSH Medical History (Updated 12/20/23 @ 05:05 by Clinton Morales MD) Obesity (BMI 30-39.9) Elevated blood pressure reading in office without diagnosis of hypertension Acute kidney failure Hyperuricemia Leukemia Surgical History (Updated 12/19/23 @ 14:08 by Clinton Morales MD) Hx of tonsillectomy Family History Father Diabetes Social History Household Members: Spouse Housing: House Alcohol intake: current Alcohol intake frequency: 0-2 drinks per day Alcohol type: beer Patient Tobacco Use Status: Never used Tobacco e-Cigarette/Vaping Use: Never Used service: No Current occupational status: employed Current occupational exposures/hazards: No Cognitive needs: No Hearing needs: No Vision needs: No Questionnaire PHQ-9 Over the last 2 weeks, how often have you been bothered by any of the following problems? 1. Little interest or pleasure in doing things: not at all 2. Feeling down, depressed, or hopeless: not at all 3. Trouble falling or staying asleep, or sleeping too much: not at all 4. Feeling tired or having little energy: not at all 5. Poor appetite or overeating: not at all 6. Feeling bad about yourself - or that you are a failure or have let yourself or your family down: not at all 7. Trouble concentrating on things, such as reading the newspaper or watching television: not at all 8. Moving or speaking so slowly that other people could have noticed. Or the opposite - being so fidgety or restless that you have been moving around a lot more than usual: not at all 9. Thoughts that you would be better off or of hurting yourself in some way: not at all Total score: 0 Depression Screening Interpretation: Negative Depression Screening Done: Yes 40988 - PHQ-9 Billing: Yes Source: Developed by Drs. Kieran Castro, Faviola Martinez, Waldemar Gilman and colleagues, with an educational bethel from [employer]. Thrive Questionnaire Date Thrive assessed: 12/19/23 I am a: Patient What is your living situation today?: I have a steady place to live Within the past 12 months, did the food you bought not last and you didn't have the money to get more?: Never true Within the past 12 months, did you worry whether your food would run out before you got money to buy more?: Never true Do you have trouble paying for medicines?: No Do you have trouble getting transportation to medical appointments?: No Do you have trouble paying your heating and electricity bill?: No Do you have trouble taking care of your child, family member or friend?: No Do you have trouble with day-to-day activities such as bathing, preparing meals, shopping, managing finances, etc.?: No Are you currently unemployed and looking for a job?: No Are you interested in more education?: No Please select the resources that you would like help with: None Currently or been in a relationship where the following occur: no concerns reported THRIVE Score: 0 AUDIT C Alcohol Use Questionnaire (AUDIT-C) 1. How often do you have a drink containing alcohol?: Never 3. How often do you have six or more drinks on one occasion?: Never Total Score: 0 Score Reviewed/Action Taken: Yes SHARATH-7 AMB Questionnaire SHARATH-7 Date SHARATH - 7 assessed: 12/19/23 Feeling nervous, anxious, or on edge: 0 = Not at all Not being able to stop or control worryin = Not at all Worrying too much about different things: 0 = Not at all Trouble relaxin = Not at all Being so restless that it is hard to sit still: 0 = Not at all Becoming easily annoyed or irritable: 0 = Not at all Feeling afraid as if something awful might happen: 0 = Not at all Total SHARATH-7 score (0-4 normal; 5-9 mild; 10-14 moderate; 15-21 severe): 0 Source: Developed by Drs. Kieran Castro, Faviola Martinez, Waldemar Gilman and colleagues, with an educational bethel from [employer]. Review of Systems Const Denies chills, Denies fatigue, Denies fever(s) and Denies headache(s) ENT Denies dysphagia, Denies dizziness, Denies otalgia, Denies headache(s), Denies neck pain, Denies odynophagia and Denies sore throat Card Denies chest pain, Denies palpitations and Denies dyspnea Resp Denies cough and Denies dyspnea GI Denies abdominal pain, Denies constipation, Denies dysphagia, Denies heartburn, Denies diarrhea, Denies nausea, Denies odynophagia and Denies vomiting Denies dysuria, Denies nocturia and Denies urinary frequency Musc Denies neck pain Skin/Breast Denies rash Neuro Denies dizziness and Denies headache(s) Endo Denies fatigue and Denies palpitations Physical exam (Primary Care) Vital Signs: Last Vital Signs Pulse 70 12/19/23 13:15 BP 160/88 H 12/19/23 13:15 Pulse Ox 99 12/19/23 13:15 Oxygen Delivery Method Room Air 12/19/23 13:15 BMI result Body Mass Index 30.0 Tobacco/Smoking Status: Tobacco use Status Tobacco use date assessed 12/19/23 12/19/23 13:17 Patient Tobacco Use Status Never used Tobacco 12/19/23 13:17 e-Cigarette/Vaping Use Never Used 12/19/23 13:17 PHQ-9: PHQ-9 Score PHQ-9: Total score 0 12/19/23 14:00 Depression Screening Interpretation: Negative Thrive Assessment: Date of Thrive Assessment Date Thrive assessed 12/19/23 12/19/23 13:17 Currently or been in a relationship where the following occur: no concerns reported Const General: no acute distress and alert HENMT Ears: TM's normal bilaterally and EAC's normal Throat: Yes posterior oropharynx normal and Yes tonsils normal (no TP congestion) Neck Neck: Yes no lymphadenopathy and Yes supple Thyroid: Thyroid normal Resp Auscultation: clear to auscultation bilaterally, no rales and no wheezes Cardio Rate: regular rate Rhythm: regular rhythm Heart sounds: no murmurs GI Palpation (GI): Soft to palpation and nontender Auscultation: normal bowel sounds General: Yes no CVA tenderness Back/Spine/Pelvis Back: no CVA tenderness Skin Rashes: no rashes Extrem General: Yes no clubbing, cyanosis or edema Results Reviewed Results Reviewed: Laboratory Tests 10/28/23 11/17/23 08:06 08:31 WBC 5.0 Hgb 9.7 L Plt Count 141 L Sodium 142 Creatinine 0.94 Estimated GFR > 60 Random Glucose 129 H AST 14 ALT 12 Lactate Dehydrogenase 192 Assessment and Plan Assessment & Plan (1) Leukemia: Comment: likely CML Code(s): C95.90 - Leukemia, unspecified not having achieved remission Qualifiers: Leukemia type: myeloid Myeloid leukemia type: unspecified myeloid Leukemia Active/Remission status: in remission Qualified Code(s): C92.91 - Myeloid leukemia, unspecified in remission Plan: Bone marrow aspiration on 09/26/2023 revealed findings of CML, blasts <5% of marrow cellularity and 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 Patient was started on Dasatinib (Sprycel) 100 mg QD on 09/26/2023, has been tolerating his chemotherapy with no other significant symptoms aside from fatigue and his WBC count has normalized on his recent labs with complete hematologic response He will have his bcr/ABL transcript rechecked next month in December 2023 Follow-up with oncology as scheduled (2) Hyperuricemia: Code(s): E79.0 - Hyperuricemia without signs of inflammatory arthritis and tophaceous disease Plan: Patient received Rasburicase for his hyperuricemia and was subsequently started on Allopurinol 100 mg BID, which he is currently still on His serum uric acid level has normalized and was at 5.5 on his labs done last month (3) Nephrolithiasis: Code(s): N20.0 - Calculus of kidney Plan: Patient had severe left-sided hydroureteronephrosis and moderate right-sided hydronephrosis with a 1 cm calculus adjacent to the ureterovesical junction, with at least 3 additional right-sided renal calculi with the largest measuring up to 1.5 cm seen on abdominal and pelvic CT done back in May 2023 when he was experiencing symptoms from his leukemia and hyperuricemia that was likely due to tumor lysis He has since been following up with urology at the [facility] regularly and recently had a follow up CT done, which still reportedly revealed the presence of the right renal calculi, which appear to be non-obstructing at this time Will try to request for a copy of his recent imaging studies for documentation (4) Elevated blood pressure reading in office without diagnosis of hypertension: Code(s): R03.0 - Elevated blood-pressure reading, without diagnosis of hypertension Plan: Patient is advised that his blood pressure has been elevated over the past couple of months now - goal is systolic BP of at least 120 to 130 mm or less Reinforced low sodium diet He is advised to monitor his blood pressure closely and we will also try to request for the assistance of our nurse navigators to help keep track of his blood pressure so we can determine if he will require pharmacotherapy for his blood pressure at some point (5) History of acute renal failure: Code(s): Z87.448 - Personal history of other diseases of urinary system Plan: Resolved - S/P urgent hemodialysis at the [facility] in [place], [place]; 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 His renal function and GFR have all completely recovered and are back to normal on his recent labs (6) Obesity (BMI 30-39.9): Code(s): E66.9 - Obesity, unspecified Plan: Reinforced diet/exercise as tolerated/lose weight Plan To return in June 2024 for his annual physical examination Patient is reminded to get his follow up labs done before he comes in for his appt in June 2024 Orders: Orders Complete Blood Count Auto Diff 06/18/24 C95.90 - Leukemia, unspecified not having achieved remission, Z00.00 - Encounter for general adult medical examination without abnormal findings Comprehensive [place]. Panel Fast 06/18/24 E78.00 - Pure hypercholesterolemia, unspecified, E79.0 - Hyperuricemia without signs of inflammatory arthritis and tophaceous disease, Z00.00 - Encounter for general adult medical examination without abnormal findings Uric Acid 06/18/24 E79.0 - Hyperuricemia without signs of inflammatory arthritis and tophaceous disease Vitamin D 25-OH Total 06/18/24 E55.9 - Vitamin D deficiency, unspecified, E79.0 - Hyperuricemia without signs of inflammatory arthritis and tophaceous disease, Z00.00 - Encounter for general adult medical examination without abnormal findings Prostate Specific Antigen Scr 06/18/24 E79.0 - Hyperuricemia without signs of inflammatory arthritis and tophaceous disease, Z00.00 - Encounter for general adult medical examination without abnormal findings Lipid Panel 06/18/24 E78.00 - Pure hypercholesterolemia, unspecified, E79.0 - Hyperuricemia without signs of inflammatory arthritis and tophaceous disease, Z00.00 - Encounter for general adult medical examination without abnormal findings TSH reflex Free T4 06/18/24 E78.00 - Pure hypercholesterolemia, unspecified, E79.0 - Hyperuricemia without signs of inflammatory arthritis and tophaceous disease, Z00.00 - Encounter for general adult medical examination without abnormal findings UA CC w/rflx Micro + Cult 06/18/24 E79.0 - Hyperuricemia without signs of inflammatory arthritis and tophaceous disease, R30.0 - Dysuria, Z00.00 - Encounter for general adult medical examination without abnormal findings Coding Level of Care Code Est Pt Level 4 (78696) Diagnoses Myeloid leukemia in remission, unspecified myeloid leukemia type C92.91 Leukemia type: myeloid Myeloid leukemia type: unspecified myeloid Leukemia Active/Remission status: in remission Hyperuricemia E79.0 Nephrolithiasis N20.0 Elevated blood pressure reading in office without diagnosis of hypertension R03.0 History of acute renal failure Z87.448 Obesity (BMI 30-39.9) E66.9
== END 2023-12-19 14:12 | disposition home or self-care (01) ==
PROVIDERS: PCP Internal Medicine; Visit Provider Internal Medicine
DX: C92.91 Myeloid leukemia, unspecified in remission (principal); E79.0 Hyperuricemia without signs of inflammatory arthritis and tophaceous disease; E66.9 Obesity, unspecified; Z68.30 Body mass index [BMI] 30.0-30.9, adult; N20.0 Calculus of kidney; R03.0 Elevated blood-pressure reading, without diagnosis of hypertension; Z87.448 Personal history of other diseases of urinary system
CPT/HCPCS: 99214

== ENCOUNTER → 2024-01-03 09:43 | Outpatient (BNV) | payer BC, SELFPAY | PROVIDERS: PCP Internal Medicine; Visit Provider Internal Medicine Cardiovascular Disease | DX: R94.31 Abnormal electrocardiogram [ECG] [EKG] (principal) | CPT/HCPCS: 93010 ==